=== PATIENT | female | born 1995 | race Two or more races ===

== ENCOUNTER 2022-09-09 21:38 | Emergency (ER) | payer OTHER ==
[~2022-09-09] VITALS: Ht 172.7 cm; Wt 86.0 kg
[2022-09-10 04:02] VITALS: BP 112/75
== END 2022-09-10 04:10 | disposition home or self-care (01) ==
LOC: ER 21:47
DX: S09.90XA Unspecified injury of head, initial encounter (principal); W18.39XA Other fall on same level, initial encounter; Y93.89 Activity, other specified; Y92.89 Other specified places as the place of occurrence of the external cause; Y99.8 Other external cause status; R55 Syncope and collapse
CPT/HCPCS: 70450; 81025; 82962; 93005; 99284; Z7610